=== PATIENT | female | born 1940 | race Caucasian/White ===

== ENCOUNTER → 2016-12-22 | Outpatient (CLI) | payer OTHER, MEDICARE, BC ==
[~2016-12-22] MED LIST: ARICEPT10 MG PO; ASPIRIN81 MG PO; GLUCOPHAGE500 MG PO; HYDROCHLOROTHIA25 MG PO; LEVAQUIN250 MG PO; MOBIC7.5 MG PO; NEURONTIN100 MG PO; NOVOLOG100 UNIT/2 SUBCUT; PRINIVIL10 MG PO; SYNTHROID50 MCG PO; TENORMIN50 MG PO; THERA M PLUS T1 EACH PO; ZOCOR40 MG PO; ZOLOFT50 MG PO
== END | disposition short-term general hospital (02) ==
LOC: CLCARD 08:46
DX: R55 Syncope and collapse (principal); I25.10 Atherosclerotic heart disease of native coronary artery without angina pectoris; Z95.1 Presence of aortocoronary bypass graft; E78.5 Hyperlipidemia, unspecified; E11.9 Type 2 diabetes mellitus without complications; Z79.899 Other long term (current) drug therapy

== ENCOUNTER 2017-01-19 11:52 | Emergency (ER) | payer MEDICARE, BC ==
[~2017-01-19] VITALS: Ht 167.6 cm; Wt 52.6 kg
[~2017-01-19 11:52] MED LIST changes: -ARICEPT10 MG PO; -LEVAQUIN250 MG PO; -MOBIC7.5 MG PO; -NEURONTIN100 MG PO; -NOVOLOG100 UNIT/2 SUBCUT; -THERA M PLUS T1 EACH PO; -ZOLOFT50 MG PO
[2017-01-19] MEDS ORDERED: TENORMIN50 MG PO (14:12)
[2017-01-19] MEDS ORDERED: LEVAQUIN250 MG PO (14:43)
[2017-01-19] MEDS ORDERED: ARICEPT10 MG PO (14:43)
[2017-01-19] MEDS ORDERED: NEURONTIN100 MG PO (14:43)
[2017-01-19] MEDS ORDERED: MOBIC7.5 MG PO (14:44)
[2017-01-19] MEDS ORDERED: THERA M PLUS T1 EACH PO (14:44)
[2017-01-19] MEDS ORDERED: NOVOLOG100 UNIT/2 SUBCUT (14:46)
[2017-01-19] MEDS ORDERED: ZOLOFT50 MG PO (14:47)
== END 2017-01-19 16:07 | disposition short-term general hospital (02) ==
LOC: ER 11:52
DX: E86.0 Dehydration (principal); N39.0 Urinary tract infection, site not specified; R63.4 Abnormal weight loss; M54.5 Low back pain; I50.9 Heart failure, unspecified; F03.90 Unspecified dementia, unspecified severity, without behavioral disturbance, psychotic disturbance, mood disturbance, and anxiety; E11.319 Type 2 diabetes mellitus with unspecified diabetic retinopathy without macular edema; M19.90 Unspecified osteoarthritis, unspecified site; Z95.1 Presence of aortocoronary bypass graft; Z90.49 Acquired absence of other specified parts of digestive tract; Z79.82 Long term (current) use of aspirin; Z79.84 Long term (current) use of oral hypoglycemic drugs; Z79.899 Other long term (current) drug therapy